=== PATIENT | female | born 1975 | race Caucasian/White ===

== ENCOUNTER 2017-12-07 21:51 | Emergency (ER) | payer OTHER ==
[~2017-12-07] VITALS: Ht 160 cm; Wt 68.0 kg
[~2017-12-07 21:51] MED LIST: MEDROLDOSEPACK PO; NAPROSYN500 MG PO; TYLENOL PM EX-1 EACH PO; ZANAFLEX4 MG PO
[2017-12-07] MEDS ORDERED: AMOXICILLIN 50500 MG PO (22:23)
[2017-12-07] MEDS ORDERED: MAGIC MOUTHWASH SWISH&SPIT (22:23)
[2017-12-07] MEDS ORDERED: IBUPROFEN 800800 M1 PO (22:23)
[2017-12-07 22:45] VITALS: BP 121/61
== END 2017-12-07 22:45 | disposition home or self-care (01) ==
LOC: M.ERS 21:51
DX: K02.9 Dental caries, unspecified (principal); S00.512A Abrasion of oral cavity, initial encounter; M41.9 Scoliosis, unspecified; Z88.1 Allergy status to other antibiotic agents; X58.XXXA Exposure to other specified factors, initial encounter; Y93.89 Activity, other specified; Y92.89 Other specified places as the place of occurrence of the external cause; Y99.8 Other external cause status

== ENCOUNTER 2018-02-21 18:33 | Emergency (ER) | payer OTHER ==
[~2018-02-21] VITALS: Ht 160 cm; Wt 65.8 kg
[~2018-02-21 18:33] MED LIST changes: +AMOXICILLIN 50500 MG PO; +IBUPROFEN 800800 M1 PO; +MAGIC MOUTHWASH SWISH&SPIT
[2018-02-21] MEDS ORDERED: TYLENOL PM EX-1 EACH PO (18:46)
[2018-02-21] MEDS ORDERED: PROMETHAZINE V473 ML PO (19:11)
[2018-02-21] MEDS ORDERED: ZPAK PO (19:11)
[2018-02-21] MEDS ORDERED: PROAIR HFA8.5 GM INH (19:11)
[2018-02-21] MEDS ORDERED: TESSALON PERLE100 MG PO (19:11)
[2018-02-21 19:31] VITALS: BP 121/66
== END 2018-02-21 19:32 | disposition home or self-care (01) ==
LOC: M.ERS 18:33
DX: J20.9 Acute bronchitis, unspecified (principal); Z98.890 Other specified postprocedural states; Z90.710 Acquired absence of both cervix and uterus; Z88.1 Allergy status to other antibiotic agents

== ENCOUNTER 2018-05-04 20:48 | Emergency (ER) | payer OTHER ==
[~2018-05-04] VITALS: Ht 160 cm; Wt 65.8 kg
[~2018-05-04 20:48] MED LIST changes: +PROAIR HFA8.5 GM INH; +PROMETHAZINE V473 ML PO; +TESSALON PERLE100 MG PO; +ZPAK PO
[2018-05-04] MEDS ORDERED: ULTRAM 50MG TAB50 MG PO (21:04)
[2018-05-04] MEDS ORDERED: AMOXICILLIN500 M1 PO (21:04)
[2018-05-04] MEDS ORDERED: PREDNISONE 10 M10 M1 PO (21:04)
[2018-05-04 21:12] VITALS: BP 111/64
== END 2018-05-04 21:17 | disposition home or self-care (01) ==
LOC: M.ERS 20:48
DX: R59.9 Enlarged lymph nodes, unspecified (principal); Z88.1 Allergy status to other antibiotic agents; Z90.710 Acquired absence of both cervix and uterus

== ENCOUNTER 2018-05-11 10:32 | Emergency (ER) | payer OTHER ==
[~2018-05-11] VITALS: Ht 160 cm; Wt 65.8 kg
[~2018-05-11 10:32] MED LIST changes: +AMOXICILLIN500 M1 PO; +PREDNISONE 10 M10 M1 PO; +ULTRAM 50MG TAB50 MG PO
[2018-05-11] MEDS ORDERED: BUTALB-APAP-CA1 EACH PO (12:20)
[2018-05-11 12:35] VITALS: BP 103/57
== END 2018-05-11 12:36 | disposition home or self-care (01) ==
LOC: M.ERS 10:32
DX: R51 Headache (principal); Z88.1 Allergy status to other antibiotic agents; Z90.710 Acquired absence of both cervix and uterus

== ENCOUNTER 2018-06-27 22:13 | Emergency (ER) | payer OTHER ==
[~2018-06-27] VITALS: Ht 160 cm; Wt 65.8 kg
[~2018-06-27 22:13] MED LIST changes: +BUTALB-APAP-CA1 EACH PO
[2018-06-27] MEDS ORDERED: PREDNISONE 10 M10 MG (22:19)
[2018-06-27] MEDS ORDERED: TESSALON PERLE100 MG PO (22:24)
[2018-06-27 22:35] VITALS: BP 120/86
== END 2018-06-27 22:35 | disposition home or self-care (01) ==
LOC: M.ERS 22:13
DX: R05 Cough (principal); R09.81 Nasal congestion; M41.9 Scoliosis, unspecified; Z88.1 Allergy status to other antibiotic agents; Z98.890 Other specified postprocedural states; Z90.710 Acquired absence of both cervix and uterus

== ENCOUNTER 2019-03-28 19:10 | Emergency (ER) | payer OTHER ==
[~2019-03-28] VITALS: Ht 157.5 cm; Wt 65.8 kg
[~2019-03-28 19:10] MED LIST changes: +PREDNISONE 10 M10 MG
[2019-03-28 19:16] VITALS: BP 126/79
[2019-03-28] MEDS ORDERED: NORCO 7.5-3251 EACH PO (19:54)
== END 2019-03-28 20:05 | disposition home or self-care (01) ==
LOC: M.ERS 19:10
DX: S83.91XA Sprain of unspecified site of right knee, initial encounter (principal); Z90.710 Acquired absence of both cervix and uterus; Z98.890 Other specified postprocedural states; W01.0XXA Fall on same level from slipping, tripping and stumbling without subsequent striking against object, initial encounter; Y93.89 Activity, other specified; Y92.34 Swimming pool (public) as the place of occurrence of the external cause; Y99.8 Other external cause status

== ENCOUNTER 2019-04-16 14:56 | Emergency (ER) | payer OTHER ==
[~2019-04-16] VITALS: Ht 157.5 cm; Wt 72.6 kg
[~2019-04-16 14:56] MED LIST changes: +NORCO 7.5-3251 EACH PO
[2019-04-16] MEDS ORDERED: ULTRAM 50MG TAB50 MG PO ×4 (15:27→15:32)
[2019-04-16] MEDS ORDERED: FLEXERIL PO ×4 (15:27→15:32)
[2019-04-16 15:42] VITALS: BP 128/56
== END 2019-04-16 15:42 | disposition home or self-care (01) ==
LOC: M.ERS 14:56
DX: S86.811A Strain of other muscle(s) and tendon(s) at lower leg level, right leg, initial encounter (principal); Z90.710 Acquired absence of both cervix and uterus; Z98.890 Other specified postprocedural states; Z88.1 Allergy status to other antibiotic agents; X58.XXXA Exposure to other specified factors, initial encounter; Y93.89 Activity, other specified; Y92.89 Other specified places as the place of occurrence of the external cause; Y99.8 Other external cause status

== ENCOUNTER 2019-06-13 20:00 | Emergency (ER) | payer OTHER ==
[~2019-06-13] VITALS: Ht 160 cm; Wt 72.6 kg
[~2019-06-13 20:00] MED LIST changes: +FLEXERIL PO
[2019-06-13 20:06] VITALS: BP 129/72
[2019-06-13] MEDS ORDERED: ACETAMINOPHEN1 EAC1 PO (20:10)
== END 2019-06-13 20:42 | disposition home or self-care (01) ==
LOC: M.ERS 20:00
DX: S83.8X1A Sprain of other specified parts of right knee, initial encounter (principal); M41.9 Scoliosis, unspecified; Z88.1 Allergy status to other antibiotic agents; Z98.890 Other specified postprocedural states; Z90.710 Acquired absence of both cervix and uterus; X58.XXXA Exposure to other specified factors, initial encounter; Y92.89 Other specified places as the place of occurrence of the external cause; Y93.89 Activity, other specified; Y99.8 Other external cause status

== ENCOUNTER 2019-07-21 13:03 | Emergency (ER) | payer OTHER ==
[~2019-07-21] VITALS: Ht 160 cm; Wt 72.6 kg
[~2019-07-21 13:03] MED LIST changes: +ACETAMINOPHEN1 EAC1 PO
[2019-07-21] MEDS ORDERED: PROAIR HFA8.5 GM (13:15)
[2019-07-21] MEDS ORDERED: PREDNISONE 20 M20 M1 PO (13:15)
[2019-07-21] MEDS ORDERED: TRIZANIDINE (13:16)
[2019-07-21] MEDS ORDERED: [UNRECOGNIZED DRUG - OTHER] (13:16)
[2019-07-21] MEDS ORDERED: PROZAC10 MG PO (13:17)
[2019-07-21] MEDS ORDERED: ZANAFLEX4 MG PO (14:34)
[2019-07-21] MEDS ORDERED: AZITHROMYCIN500 MG PO (14:43)
[2019-07-21] MEDS ORDERED: PREDNISONE 10 M10 MG PO (14:46)
[2019-07-21 15:07] VITALS: BP 118/77
--- NOTE | 2019-07-21 16:47 | EKG ---
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
== END 2019-07-21 15:07 | disposition home or self-care (01) ==
LOC: M.ERS 13:03
DX: J45.909 Unspecified asthma, uncomplicated (principal); Z88.1 Allergy status to other antibiotic agents; Z90.710 Acquired absence of both cervix and uterus; Z98.890 Other specified postprocedural states; Z98.51 Tubal ligation status

== ENCOUNTER 2019-08-30 12:55 | Emergency (ER) | payer OTHER ==
[~2019-08-30] VITALS: Ht 157.5 cm; Wt 72.6 kg
[~2019-08-30 12:55] MED LIST changes: +AZITHROMYCIN500 MG PO; +PREDNISONE 10 M10 MG PO; +PREDNISONE 20 M20 M1 PO; +PROAIR HFA8.5 GM; +PROZAC10 MG PO; +TRIZANIDINE; +[UNRECOGNIZED DRUG - OTHER]
[2019-08-30] MEDS ORDERED: DIFLUCAN SUS40 MG/ML PO (13:11)
[2019-08-30 13:26] LABS: ABSOLUTE LYMPHOCYTES 1.7 thou/uL (0.8-5.3); BASOPHILS 0.4 %; MPV 7.3 fl. (7.2-11.1)
[2019-08-30 13:27] LABS: ABSOLUTE EOSINOPHILS 0.1 thou/uL (0.0-0.7); ABSOLUTE MONOCYTES 0.4 thou/uL (0.0-1.2); ABSOLUTE NEUTROPHILS 3.7 thou/uL (1.6-8.1); EOSINOPHILS 1.8 %; HEMATOCRIT 37.7 % (37.0-47.0); HEMOGLOBIN 12.8 gm/dL (12.0-15.0); LYMPHOCYTES 28.3 %; MCH 32.3 pg (26.0-34.0); MCHC 33.9 g/dL (28.0-37.0); MCV 95.2 fL (80.0-100.0); MONOCYTES 6.9 %; NUCLEATED RBCS 0 /100WBC; PLATELET COUNT* 308 thou/uL (150-400); POLYS 62.6 %; RBC 3.96 mil/uL (4.20-5.00); RDW-CV 12.7 % (10.5-14.5); WBC 5.9 thou/uL (4.0-11.0)
[2019-08-30 13:34] LABS: CALCIUM 8.7 mg/dL (8.5-10.1); CREATININE 0.9 mg/dL (0.6-1.3); POTASSIUM 3.8 mmol/L (3.5-5.1)
[2019-08-30 13:39] LABS: ALBUMIN 3.6 g/dL (3.4-5.0); TOTAL BILIRUBIN 0.9 mg/dL (<0.1-1.0); TOTAL PROTEIN 7.4 g/dL (6.4-8.2)
[2019-08-30 13:52] LABS: URINE BILIRUBIN NEGATIVE (Negative); URINE BLOOD 2+ (Negative); URINE CLARITY CLEAR; URINE COLOR YELLOW; URINE GLUCOSE-RANDOM NEGATIVE (Negative); URINE KETONES NEGATIVE (Negative); URINE LEUKOCYTES-REFLEX NEGATIVE (Negative); URINE NITRITE-REFLEX NEGATIVE (Negative); URINE PROTEIN TRACE (Negative); URINE SPECIFIC GRAVITY >= 1.030 (1.005-1.030); URINE UROBILINOGEN 0.2 E.U./dl (0.2-1.0)
[2019-08-30 14:00] LABS: BACTERIA-REFLEX >30 Many /HPF (None Seen); CASTS None Seen /LPF (None Seen); SQUAMOUS 4-10 Moderate /LPF (0-3); URINE RBC 0-2 Rare /HPF (0-2); URINE WBC-REFLEX 6-15 Few /HPF (0-5)
[2019-08-30 14:01] LABS: CRYSTALS None Seen /LPF (None Seen)
[2019-08-30] MEDS ORDERED: TYLENOL WITH CO1 TA1 PO (15:06)
[2019-08-30 15:31] VITALS: BP 110/80
--- NOTE | 2019-09-01 15:02 | EKG ---
[place] [address] ELECTROCARDIOGRAM REPORT Name: CHARLES MASON Room: [facility]#: [id number] Admission: 08/30/19 Attend Phys: Discharge: 08/30/19 Date of : 75 Report #: [id number] THIS REPORT FOR: //name// 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1975 Requested By: Suzanne Partida Order Number: [id number] MD: Krunal Powell Measurements Intervals [place] Rate: 49 P: 16 DE: 157 QRS: 29 QRSD: 87 T: 20 QT: 508 QTc: 459 Interpretive Statements Sinus bradycardia Abnormal R-wave progression, early transition Compared to ECG 07/21/2019 13:31:36 Sinus rhythm no longer present Electronically Signed On 09-01-2019 15:02:41 [employer] by Krunal Powell [email or web address] <ELECTRONICALLY SIGNED> By: Krunal Powell MD, [facility] 09/01/19 1502 1322 1322 Krunal Powell MD, FACC /EPI
== END 2019-08-30 15:31 | disposition home or self-care (01) ==
LOC: M.ERS 12:55
PROVIDERS: Nurse Practitioner Family
DX: I95.9 Hypotension, unspecified (principal); G89.29 Other chronic pain; M54.9 Dorsalgia, unspecified; M41.9 Scoliosis, unspecified; Z98.890 Other specified postprocedural states; Z90.710 Acquired absence of both cervix and uterus; Z88.1 Allergy status to other antibiotic agents; Z91.018 Allergy to other foods; Z98.51 Tubal ligation status

== ENCOUNTER 2019-11-16 13:40 | Emergency (ER) | payer OTHER ==
[~2019-11-16] VITALS: Ht 157.5 cm; Wt 72.6 kg
[~2019-11-16 13:40] MED LIST changes: +DIFLUCAN SUS40 MG/ML PO; +TYLENOL WITH CO1 TA1 PO
[2019-11-16 14:16] LABS: INFLUENZA A ANTIGEN Negative (Negative); INFLUENZA B ANTIGEN Negative (Negative)
[2019-11-16 14:39] VITALS: BP 134/89
== END 2019-11-16 14:40 | disposition home or self-care (01) ==
LOC: M.ERS 13:40
PROVIDERS: Family Medicine
DX: J06.9 Acute upper respiratory infection, unspecified (principal); M41.9 Scoliosis, unspecified; Z98.890 Other specified postprocedural states; Z90.710 Acquired absence of both cervix and uterus; Z98.51 Tubal ligation status; Z91.018 Allergy to other foods; Z88.1 Allergy status to other antibiotic agents; Z88.8 Allergy status to other drugs, medicaments and biological substances